=== PATIENT | female | born 1980 | race African-American/Black ===

== ENCOUNTER 2016-04-23 08:49 | Emergency (ER) | payer SELFPAY ==
[2016-04-23 09:05] VITALS: TEMP 98.8; BMI 35.9
[2016-04-23] MEDS ORDERED: ALBUTEROL 6.7 GM MDI INH ONE (09:21)
--- NOTE | 2016-04-23 09:23 | EDPRACDOC ---
- General Information Chief Complaint: Flu-Like Symptoms Stated Complaint: FLU LIKE SYMPTOMS Time Seen by Provider: 04/23/16 09:15 Information Source: Patient Mode Of Arrival: Car Home Medications: Home Medications Lisinopril/Hydrochlorothiazide [Lisinopril-Hctz 20-12.5 mg Tab] 1 tab PO DAILY # 30 tab 03/06/15 Metformin HCl 1,000 mg PO DAILY 04/23/16 Prednisone [Deltasone, Orasone] 20 mg PO DAILY #20 tab 04/23/16 Promethazine Dextromethorphan [Phenergan DM] 5 ml PO Q4H PRN #120 ml 04/23/16 Allergies/Adverse Reactions: Allergies Allergy/AdvReac Type Severity Reaction Status Date / Time No Known Allergies Allergy Verified 04/23/16 09:02 - History of Present Illness Onset: 2-3 days HPI: Pt c/o cough, congestion, sore throat, post tussive vomiting, sob x 3 days. Denies earache, cp, abd pain, changes in bowel or bladder, rash, leg swelling. Pt request her "anemia" level being checked because she feels its low. 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 Denies: Cancer Surgical History: Denies: Hysterectomy - Social Medical History Smoking Status: Heavy tobacco smoker (5 or more cigarettes/day or daily pipe/ cigar) ETOH: None Substance Abuse: None EDM Review of Systems - Review of Systems Constitutional: No Symptoms Reported. negative: Fever, Chills, Weakness, Fatigue, Loss of Appetite Ears: No Symptoms Reported. negative: Pain, Hearing Loss, Drainage, Ear Pulling Throat: Pain Nose: Congestion Mouth: No Symptoms Reported. negative: Pain, Drooling Respiratory: Cough Cardiovascular: No Symptoms Reported. negative: Chest Pain, Palpitations, Syncope, Edema, Orthopnea, PND, Skin Mottling, Cyanosis Gastrointestinal: Vomiting Genitourinary: No Symptoms Reported. negative: Dysuria, Hematuria, Frequency, Discharge, Bleeding, Testicular Pain, Neurological: No Symptoms Reported. negative: Headache, Dizziness, Seizure, Numbness, Weakness, Speech Difficulty, Gait Difficulty Musculoskeletal: Ribs. negative: No Symptoms Reported, Arm, Ankle, Back, Chestwall, Elbow, Forearm, Femur, Foot, Hand, Hip, Knee, Leg, Neck, Pelvis, Shoulder, Wrist Integumentary: No Symptoms Reported. negative: Itching, Rash, Bruising, Wound Allergic/Immunologic: No Symptoms Reported. negative: Hives, Itching Hematologic: No Symptoms Reported. negative: Lymphadenopathy, Easy Bruising, Easy Bleeding Psychiatric: No Symptoms Reported. negative: Anxiety, Depression, Hallucinations, Insomnia, Suicidal - Physical Exam Constitutional: No apparent distress, Alert Oriented to: Time, Person, Place Last recorded Vital Signs: Last Vital Signs Temp 98.8 F 04/23/16 08:59 Pulse 98 04/23/16 08:59 Resp 18 04/23/16 08:59 BP 173/86 04/23/16 08:59 Pulse Ox 96 04/23/16 08:59 Oxygen Pulse Oxygen Saturation 96 O2 Device Room Air Oxygen Flow Rate Fraction of Inspired Oxygen ( FIO2) - HEENT Head: Normal ( normocephalic) Eye Exam: Normal (PERRL, EOMI, Sclera white) Oropharynx: Normal (Pharynx:Moist without exudate,Gums-no swelling) Tympanic Membrane: Normal ENT EAC: Normal Nose: Congestion Neck: Normal (FROM, trachea at midline) - Respiratory/Cardiovascular Respiratory: Normal - CTA (BBS clear to auscultation without adventitious sounds ) Cardiovascular: Normal (RRR without murmur, gallop or rub) - GI Auscultation: Normal (NABS) Palpation: Normal (Soft,No rebound or guarding, non distended) Tenderness: Non tender - Musculoskeletal Back: Normal (Non-Tender) Extremities: Normal (Normal tone, Pulses 2+ No cyanosis or edema, FROM) - Integumentary Skin: Normal, Warm, Dry Lymphatics: Normal (no adenopathy) - Neurologic Memory Impaired: Normal Motor Function: Normal (Normal tone, Pulses 2+ No cyanosis or edema, FROM) Mood Description: Normal Perception: Normal - Differential Diagnosis Bronchitis, Pneumonia, URI, Viral - Results 04/23/16 09:30 - Diagnostic Imaging Chest Image interpreted by: Radiologist IMPRESSION: No active cardiopulmonary disease. Decision Time to Discharge: 10:15 - Departure Disposition: Home Condition: Good Final Diagnosis: Acute bronchitis, Acute upper respiratory infection Instructions: Acute Bronchitis (ED), Upper Respiratory Infection (ED) Education/Counseling Given To: Patient Education/Counseling Given Regarding: Diagnosis, Treatment, Follow Up Referrals: None,No Provider [Primary Care Provider] - One Week Jared Streeter MD [Staff Physician] - One Week Prescriptions: Prednisone [Deltasone, Orasone] 20 mg PO DAILY #20 tab Promethazine Dextromethorphan [Phenergan DM] 5 ml PO Q4H PRN #120 ml PRN Reason: Cough Additional Instructions: Albuterol MDI 1-2 puffs every 4-6 hours as needed for shortness of breath.
[2016-04-23 09:41] LABS: AUTOMATED BASOPHIL 0.7 % (0-2); AUTOMATED EOSINOPHIL 4.1 % (0-5); AUTOMATED LYMPH 22.5 % (17-44); AUTOMATED MONOCYTE 10.7 % (3-10); MPV 7.5 fL (7.4-10.4)
--- NOTE | 2016-04-23 10:12 | DIRPT ---
CLINICAL DATA: Cough and congestion 3 days. EXAM: CHEST 2 VIEW COMPARISON: 01/27/2016 FINDINGS: Lungs are adequately inflated without consolidation or effusion. Cardiomediastinal silhouette, bones and soft tissues are within normal. IMPRESSION: No active cardiopulmonary disease. Electronically Signed By: Kenji Mary M.D. On: 04/23/2016 10:10
[2016-04-23 10:53] VITALS: BP 172/86; PULSE 77
== END 2016-04-23 10:50 | disposition home or self-care (01) ==
LOC: ED 08:49
DX: J20.9 Acute bronchitis, unspecified (principal); J06.9 Acute upper respiratory infection, unspecified
CPT/HCPCS: 36415; 71020; 85025; 94640; 99283; J3490

== ENCOUNTER 2016-05-05 14:37 | Emergency (ER) | payer SELFPAY ==
[2016-05-05 14:47] VITALS: BMI 35.4
[2016-05-05 15:17] LABS: BLOOD UREA NITROGEN 8 MG/DL (7-17); CALCIUM 9.4 MG/DL (8.4-10.2); CALCULATED OSMOLALITY 270 MOs/Kg (270-290); CHLORIDE 106 mEq/L (98-107); GLUCOSE 110 MG/DL (70-99); SODIUM LEVEL 141 mEq/L (137-146); TOTAL PROTEIN 7.3 G/DL (6.3-8.2)
[2016-05-05 15:37] LABS: SEG NEUTROPHIL 78 % (45-76); TOTAL CELL COUNT 100
[2016-05-05] MEDS ORDERED: HYDROmorphone 1 MG INJECTION IV ONE ×2 (17:04→19:20)
[2016-05-05] MEDS ORDERED: NS 500 ML IV ONE (17:04)
[2016-05-05 17:30] VITALS: TEMP 100.5
[2016-05-05] MEDS ORDERED: ACETAMINOPHEN 325 MG/TAB TABLET PO ONE (17:37)
[2016-05-05] MEDS ORDERED: Pharmacy Review for Metformin - IV Contrast Given SCH (18:00)
--- NOTE | 2016-05-05 18:39 | DIRPT ---
CLINICAL DATA: Vaginal bleeding since 04/20/2016. Pelvic pain for 1 week. Initial encounter. EXAM: TRANSABDOMINAL AND TRANSVAGINAL ULTRASOUND OF PELVIS TECHNIQUE: Both transabdominal and transvaginal ultrasound examinations of the pelvis were performed. Transabdominal technique was performed for global imaging of the pelvis including uterus, ovaries, adnexal regions, and pelvic cul-de-sac. It was necessary to proceed with endovaginal exam following the transabdominal exam to visualize the uterus. COMPARISON: None FINDINGS: Uterus Measurements: 13.4 by 12.0 by 12.0 cm. Multiple fibroids are identified. The largest measures 4.8 cm in diameter. Endometrium Not visualized. Right ovary Not visualized. Left ovary Not visualized. Other findings No abnormal free fluid. IMPRESSION: Bulky fibroid uterus. The endometrium and ovaries are not visualized. Electronically Signed By: Vasquez Sadler M.D. On: 05/05/2016 18:37
--- NOTE | 2016-05-05 18:50 | EDPRACDOC ---
<Hakeem Boyd - Last Filed: 05/05/16 19:50> - General Information Information Source: Patient - History of Present Illness Onset: 04/20/16 HPI: PT PRESENTS TODAY WITH 3 WEEKS OF VAGINAL BLEEDING AND LOWER ABD PAIN X 3 WEEKS. PT STATES THAT SHE IS GOING THROUGH OVER 20 HEAVY PADS DAILY. PT STATES THAT SHE ALWAYS HAD HEAVY MENSTRUAL CYCLES, BUT NOT LIKE THIS. SEVERE LOWER ABD PAIN. PT UNAWARE OF ANY FEVER. Description: Reports: Spontaneous Location: Reports: Internal Vagina Relevant History: Reports: Other (PT REPORTS HISTORY OF UTERINE FIBROIDS.) Pain Severity: Severe Vaginal Bleeding Description: Reports: Dark, Clotted # Pads Used in the Last 12/24 Hours: 20 Associated Signs & Symptoms: Reports: Abdominal Pain, Nausea, Vaginal Bleeding <Alisa Castaneda - Last Filed: 05/05/16 19:52> - General Information Chief Complaint: Vaginal Bleeding Stated Complaint: VAGINAL BLEEDING WITH ABD PAIN Time Seen by Provider: 05/05/16 16:53 Home Medications: Home Medications Lisinopril/Hydrochlorothiazide [Lisinopril-Hctz 20-12.5 mg Tab] 1 tab PO DAILY # 30 tab 03/06/15 Metformin HCl 1,000 mg PO DAILY 04/23/16 Ferrous Sulfate [Feosol] 325 mg PO TID 05/05/16 Metronidazole [Flagyl] 500 mg PO TID #20 tab 05/05/16 Ondansetron HCl [Zofran] 4 mg PO Q6H PRN #20 tab 05/05/16 Oxycodone Immediate Release [Oxycodone Immediate Release (OxyIR)] 5 mg PO Q6H PRN #30 tab 05/05/16 Tranexamic Acid [Lysteda] 650 mg PO TID #5 days 05/05/16 Allergies/Adverse Reactions: Allergies Allergy/AdvReac Type Severity Reaction Status Date / Time No Known Allergies Allergy Verified 04/23/16 09:02 ED Past Medical History - History Reviewed Yes Nurses notes reviewed and agree except as marked - Patient Medical History Cardiac History: Reports: Hypertension Psychological History: Denies: Depression Systemic History: Reports: Diabetes. Denies: Cancer Surgical History: Denies: Hysterectomy - Social Medical History Smoking Status: Heavy tobacco smoker (5 or more cigarettes/day or daily pipe/ cigar) <Alisa Castaneda - Last Filed: 05/05/16 19:52> EDM Review of Systems - Review of Systems ROS Negative Except as Marked: Yes All systems reviewed and were negative except as marked Constitutional: No Symptoms Reported Respiratory: No Symptoms Reported Cardiovascular: No Symptoms Reported Gastrointestinal: Nausea, Pain Genitourinary: Bleeding Neurological: No Symptoms Reported Musculoskeletal: No Symptoms Reported Integumentary: No Symptoms Reported <Alisa Castaneda - Last Filed: 05/05/16 19:52> - Physical Exam Last recorded Vital Signs: Last Vital Signs Temp 100.5 F 05/05/16 17:29 Pulse 100 05/05/16 19:33 Resp 18 05/05/16 19:33 BP 171/85 05/05/16 19:33 Pulse Ox 95 05/05/16 19:33 Oxygen Pulse Oxygen Saturation 95 O2 Device Room Air Oxygen Flow Rate Fraction of Inspired Oxygen ( FIO2) <Hakeem Boyd - Last Filed: 05/05/16 19:50> - Physical Exam Constitutional: Alert (Awake), Distress Oriented to: Time, Person, Place Last recorded Vital Signs: Last Vital Signs Temp 100.5 F 05/05/16 17:29 Pulse 103 05/05/16 17:40 Resp 18 05/05/16 17:40 BP 167/82 05/05/16 17:40 Pulse Ox 94 05/05/16 17:40 Oxygen Pulse Oxygen Saturation 94 O2 Device Room Air Oxygen Flow Rate Fraction of Inspired Oxygen ( FIO2) - HEENT Head: Normal Eye Exam: Normal Neck: Normal, Denies Pain, Midline - Respiratory/Cardiovascular Respiratory: Normal - CTA Cardiovascular: Normal - GI Auscultation: Decreased (HASN'T EATEN FOR 12 HOURS) Palpation: Mass (FIRM ABDOMEN ALONG THE UTERUS; MASS?) Tenderness: Moderate, Suprapubic - External: Blood Vagina: Blood Cervix: Blood Uterus: Enlarged - Musculoskeletal Back: Normal Extremities: Normal - Integumentary Skin: Warm Lymphatics: Normal - Neurologic Cerebellar: Normal Mood Description: Normal Thought: Coherent <Alisa Castaneda - Last Filed: 05/05/16 19:52> ED Vaginal Exam External: Blood Vaginal Exam: Blood Vaginal Lesions: None Cervix: Blood Uterus: Enlarged, Tender Adnexa: Other (CANNOT PALPATE) <Alisa Castaneda - Last Filed: 05/05/16 19:52> - Results 05/05/16 14:48 05/05/16 14:48 WBC 13.3 xk/uL (3.8-10.8) H 05/05/16 14:48 RBC 4.28 xM/uL (4.20-5.40) 05/05/16 14:48 Hgb 10.5 g/dL (12.0-16.0) L 05/05/16 14:48 Hct 33.3 % (36-47) L 05/05/16 14:48 MCV 78 fL (81-99) L 05/05/16 14:48 MCH 24.5 pg (27-32) L 05/05/16 14:48 MCHC 31.4 g/dl (33-36) L 05/05/16 14:48 RDW 25.7 % (11.5-14.5) H 05/05/16 14:48 Plt Count 418 xk/uL (130-400) H 05/05/16 14:48 MPV 8.0 fL (7.4-10.4) 05/05/16 14:48 Neut % (Auto) Cancelled 05/05/16 14:48 Lymph % (Auto) Cancelled 05/05/16 14:48 [place] % (Auto) Cancelled 05/05/16 14:48 Eos % (Auto) Cancelled 05/05/16 14:48 Baso % (Auto) Cancelled 05/05/16 14:48 Absolute Neuts (auto) Cancelled 05/05/16 14:48 Absolute Lymphs (auto) Cancelled 05/05/16 14:48 Seg Neuts % (Manual) 78 % (45-76) H 05/05/16 14:48 Band Neutrophils % 2 % (0-5) 05/05/16 14:48 Lymphocytes % (Manual) 15 % (17-44) L 05/05/16 14:48 Monocytes % (Manual) 4 % (0-10) 05/05/16 14:48 Basophils % (Manual) 1 % (0-2) 05/05/16 14:48 Absolute Neutrophils 10.64 xk/uL (1.7-8.2) H 05/05/16 14:48 Absolute Lymphocytes 2.00 xk/uL (0.65-4.75) 05/05/16 14:48 Vacuolated Neuts 1+ 05/05/16 14:48 Platelet Estimate Inc (NORMAL) Occ giant platelet (NORMAL) 05/05/16 14:48 Platelet Estimate Inc (NORMAL) Occ giant platelet (NORMAL) 05/05/16 14:48 RBC Morphology 1+ aniso 1+ poik 1+ hypo 1+ polychrom 1+ micro 1+ ellipto 14:48 RBC Morphology 1+ aniso 1+ poik 1+ hypo 1+ polychrom 1+ micro 1+ ellipto 14:48 RBC Morphology 1+ aniso 1+ poik 1+ hypo 1+ polychrom 1+ micro 1+ ellipto 14:48 RBC Morphology 1+ aniso 1+ poik 1+ hypo 1+ polychrom 1+ micro 1+ ellipto 14:48 RBC Morphology 1+ aniso 1+ poik 1+ hypo 1+ polychrom 1+ micro 1+ ellipto 14:48 RBC Morphology 1+ aniso 1+ poik 1+ hypo 1+ polychrom 1+ micro 1+ ellipto 14:48 Sodium 141 mEq/L (137-146) 05/05/16 14:48 Potassium 3.7 mEq/L (3.5-5.1) 05/05/16 14:48 Chloride 106 mEq/L (98-107) 05/05/16 14:48 Carbon Dioxide 25 mMOL/L (22-33) 05/05/16 14:48 Anion Gap 14 mEq/L (8-16) 05/05/16 14:48 BUN 8 MG/DL (7-17) 05/05/16 14:48 Creatinine 0.50 MG/DL (0.52-1.04) L 05/05/16 14:48 Estimated GFR (MDRD) > 60 mL/min (>=60) 05/05/16 14:48 Glucose 110 MG/DL (70-99) H 05/05/16 14:48 Calculated Osmolality 270 MOs/Kg (270-290) 05/05/16 14:48 Lactic Acid 0.7 mEq/L (0.7-2.1) 05/05/16 17:19 Calcium 9.4 MG/DL (8.4-10.2) 05/05/16 14:48 Total Bilirubin 0.3 MG/DL (0.2-1.3) 05/05/16 14:48 AST 18 IU/L (14-36) 05/05/16 14:48 ALT 40 IU/L (9-52) 05/05/16 14:48 Alkaline Phosphatase 75 IU/L (38-126) 05/05/16 14:48 Total Protein 7.3 G/DL (6.3-8.2) 05/05/16 14:48 Albumin 4.4 G/DL (3.5-5.0) 05/05/16 14:48 Urine Test Neg (NEGATIVE) 05/05/16 14:50 Microbiology 05/05/16 19:17 Trichomonas [place] - Final Vaginal 05/05/16 19:17 CRIS Preparation - Final Vaginal Lab Results 05/05/16 05/05/16 05/05/16 17:19 14:50 14:48 WBC 13.3 H RBC 4.28 Hgb 10.5 L Hct 33.3 L MCV 78 L MCH 24.5 L MCHC 31.4 L RDW 25.7 H Plt Count 418 H MPV 8.0 Neut % (Auto) Cancelled Lymph % (Auto) Cancelled [place] % (Auto) Cancelled Eos % (Auto) Cancelled Baso % (Auto) Cancelled Absolute Neuts (auto) Cancelled Absolute Lymphs (auto) Cancelled Seg Neuts % (Manual) 78 H Band Neutrophils % 2 Lymphocytes % (Manual) 15 L Monocytes % (Manual) 4 Basophils % (Manual) 1 Absolute Neutrophils 10.64 H Absolute Lymphocytes 2.00 Vacuolated Neuts 1+ Platelet Estimate Occ giant platelet RBC Morphology 1+ ellipto Sodium Potassium Chloride Carbon Dioxide Anion Gap BUN Creatinine Estimated GFR (MDRD) Glucose Calculated Osmolality Lactic Acid 0.7 Calcium Total Bilirubin AST ALT Alkaline Phosphatase Total Protein Albumin Urine Test Neg 05/05/16 14:48 WBC RBC Hgb Hct MCV MCH MCHC RDW Plt Count MPV Neut % (Auto) Lymph % (Auto) [place] % (Auto) Eos % (Auto) Baso % (Auto) Absolute Neuts (auto) Absolute Lymphs (auto) Seg Neuts % (Manual) Band Neutrophils % Lymphocytes % (Manual) Monocytes % (Manual) Basophils % (Manual) Absolute Neutrophils Absolute Lymphocytes Vacuolated Neuts Platelet Estimate RBC Morphology Sodium 141 Potassium 3.7 Chloride 106 Carbon Dioxide 25 Anion Gap 14 BUN 8 Creatinine 0.50 L Estimated GFR (MDRD) > 60 Glucose 110 H Calculated Osmolality 270 Lactic Acid Calcium 9.4 Total Bilirubin 0.3 AST 18 ALT 40 Alkaline Phosphatase 75 Total Protein 7.3 Albumin 4.4 Urine Test <Hakeem Boyd - Last Filed: 05/05/16 19:50> - Results 05/05/16 14:48 05/05/16 14:48 WBC 13.3 xk/uL (3.8-10.8) H 05/05/16 14:48 RBC 4.28 xM/uL (4.20-5.40) 05/05/16 14:48 Hgb 10.5 g/dL (12.0-16.0) L 05/05/16 14:48 Hct 33.3 % (36-47) L 05/05/16 14:48 MCV 78 fL (81-99) L 05/05/16 14:48 MCH 24.5 pg (27-32) L 05/05/16 14:48 MCHC 31.4 g/dl (33-36) L 05/05/16 14:48 RDW 25.7 % (11.5-14.5) H 05/05/16 14:48 Plt Count 418 xk/uL (130-400) H 05/05/16 14:48 MPV 8.0 fL (7.4-10.4) 05/05/16 14:48 Neut % (Auto) Cancelled 05/05/16 14:48 Lymph % (Auto) Cancelled 05/05/16 14:48 [place] % (Auto) Cancelled 05/05/16 14:48 Eos % (Auto) Cancelled 05/05/16 14:48 Baso % (Auto) Cancelled 05/05/16 14:48 Absolute Neuts (auto) Cancelled 05/05/16 14:48 Absolute Lymphs (auto) Cancelled 05/05/16 14:48 Seg Neuts % (Manual) 78 % (45-76) H 05/05/16 14:48 Band Neutrophils % 2 % (0-5) 05/05/16 14:48 Lymphocytes % (Manual) 15 % (17-44) L 05/05/16 14:48 Monocytes % (Manual) 4 % (0-10) 05/05/16 14:48 Basophils % (Manual) 1 % (0-2) 05/05/16 14:48 Absolute Neutrophils 10.64 xk/uL (1.7-8.2) H 05/05/16 14:48 Absolute Lymphocytes 2.00 xk/uL (0.65-4.75) 05/05/16 14:48 Vacuolated Neuts 1+ 05/05/16 14:48 Platelet Estimate Inc (NORMAL) Occ giant platelet (NORMAL) 05/05/16 14:48 Platelet Estimate Inc (NORMAL) Occ giant platelet (NORMAL) 05/05/16 14:48 RBC Morphology 1+ aniso 1+ poik 1+ hypo 1+ polychrom 1+ micro 1+ ellipto 14:48 RBC Morphology 1+ aniso 1+ poik 1+ hypo 1+ polychrom 1+ micro 1+ ellipto 14:48 RBC Morphology 1+ aniso 1+ poik 1+ hypo 1+ polychrom 1+ micro 1+ ellipto 14:48 RBC Morphology 1+ aniso 1+ poik 1+ hypo 1+ polychrom 1+ micro 1+ ellipto 14:48 RBC Morphology 1+ aniso 1+ poik 1+ hypo 1+ polychrom 1+ micro 1+ ellipto 14:48 RBC Morphology 1+ aniso 1+ poik 1+ hypo 1+ polychrom 1+ micro 1+ ellipto 14:48 Sodium 141 mEq/L (137-146) 05/05/16 14:48 Potassium 3.7 mEq/L (3.5-5.1) 05/05/16 14:48 Chloride 106 mEq/L (98-107) 05/05/16 14:48 Carbon Dioxide 25 mMOL/L (22-33) 05/05/16 14:48 Anion Gap 14 mEq/L (8-16) 05/05/16 14:48 BUN 8 MG/DL (7-17) 05/05/16 14:48 Creatinine 0.50 MG/DL (0.52-1.04) L 05/05/16 14:48 Estimated GFR (MDRD) > 60 mL/min (>=60) 05/05/16 14:48 Glucose 110 MG/DL (70-99) H 05/05/16 14:48 Calculated Osmolality 270 MOs/Kg (270-290) 05/05/16 14:48 Lactic Acid 0.7 mEq/L (0.7-2.1) 05/05/16 17:19 Calcium 9.4 MG/DL (8.4-10.2) 05/05/16 14:48 Total Bilirubin 0.3 MG/DL (0.2-1.3) 05/05/16 14:48 AST 18 IU/L (14-36) 05/05/16 14:48 ALT 40 IU/L (9-52) 05/05/16 14:48 Alkaline Phosphatase 75 IU/L (38-126) 05/05/16 14:48 Total Protein 7.3 G/DL (6.3-8.2) 05/05/16 14:48 Albumin 4.4 G/DL (3.5-5.0) 05/05/16 14:48 Urine Test Neg (NEGATIVE) 05/05/16 14:50 Lab Results 05/05/16 05/05/16 05/05/16 17:19 14:50 14:48 WBC 13.3 H RBC 4.28 Hgb 10.5 L Hct 33.3 L MCV 78 L MCH 24.5 L MCHC 31.4 L RDW 25.7 H Plt Count 418 H MPV 8.0 Neut % (Auto) Cancelled Lymph % (Auto) Cancelled [place] % (Auto) Cancelled Eos % (Auto) Cancelled Baso % (Auto) Cancelled Absolute Neuts (auto) Cancelled Absolute Lymphs (auto) Cancelled Seg Neuts % (Manual) 78 H Band Neutrophils % 2 Lymphocytes % (Manual) 15 L Monocytes % (Manual) 4 Basophils % (Manual) 1 Absolute Neutrophils 10.64 H Absolute Lymphocytes 2.00 Vacuolated Neuts 1+ Platelet Estimate Occ giant platelet RBC Morphology 1+ ellipto Sodium Potassium Chloride Carbon Dioxide Anion Gap BUN Creatinine Estimated GFR (MDRD) Glucose Calculated Osmolality Lactic Acid 0.7 Calcium Total Bilirubin AST ALT Alkaline Phosphatase Total Protein Albumin Urine Test Neg 05/05/16 14:48 WBC RBC Hgb Hct MCV MCH MCHC RDW Plt Count MPV Neut % (Auto) Lymph % (Auto) [place] % (Auto) Eos % (Auto) Baso % (Auto) Absolute Neuts (auto) Absolute Lymphs (auto) Seg Neuts % (Manual) Band Neutrophils % Lymphocytes % (Manual) Monocytes % (Manual) Basophils % (Manual) Absolute Neutrophils Absolute Lymphocytes Vacuolated Neuts Platelet Estimate RBC Morphology Sodium 141 Potassium 3.7 Chloride 106 Carbon Dioxide 25 Anion Gap 14 BUN 8 Creatinine 0.50 L Estimated GFR (MDRD) > 60 Glucose 110 H Calculated Osmolality 270 Lactic Acid Calcium 9.4 Total Bilirubin 0.3 AST 18 ALT 40 Alkaline Phosphatase 75 Total Protein 7.3 Albumin 4.4 Urine Test - Additional Information CONSULTED WITH DR. ATKINS; ADVISED TO PRESCRIBE LYSTEDA TO HELP WITH THE BLEEDING/PAIN. NARCOTICS FOR ADDITIONAL CONTROL; TREAT FOR PID AND NO SEXUAL ACTIVITY UNTIL FOLLOW UP. WILBERT WILL SEE NEXT WEEK IN OFFICE. <Alisa Castaneda - Last Filed: 05/05/16 19:52> - Departure Yes I personally saw and evaluated the patient. <Hakeem Boyd - Last Filed: 05/05/16 19:50> Decision Time to Discharge: 19:52 - Departure Disposition: Home Education/Counseling Given To: Patient Education/Counseling Given Regarding: Diagnosis, Treatment, Follow Up <Alisa Castaneda - Last Filed: 05/05/16 19:52> - Departure Condition: Stable Final Diagnosis: Dysfunctional uterine bleeding, Enlarged uterus, PID (pelvic inflammatory disease) Uterine fibroid Qualifiers: Uterine leiomyoma location: unspecified location Qualified Code(s): D25.9 - Leiomyoma of uterus, unspecified Instructions: Dysfunctional Uterine Bleeding (ED) Referrals: None,No Provider [Primary Care Provider] - One Week Cristina Rodas DO [Staff Physician] - One Week Prescriptions: New Metronidazole [Flagyl] 500 mg PO TID #20 tab Ondansetron HCl [Zofran] 4 mg PO Q6H PRN #20 tab PRN Reason: Nausea/Vomiting Oxycodone Immediate Release [Oxycodone Immediate Release (OxyIR)] 5 mg PO Q6H PRN #30 tab PRN Reason: Pain Tranexamic Acid [Lysteda] 650 mg PO TID #5 days No Action Lisinopril/Hydrochlorothiazide [Lisinopril-Hctz 20-12.5 mg Tab] 1 tab PO DAILY #30 tab Metformin HCl 1,000 mg PO DAILY Ferrous Sulfate [Feosol] 325 mg PO TID Additional Instructions: PELVIC REST UNTIL FOLLOW UP WITH COOLING PAN TENDER (AT LEAST [address] ATKINS WAS CONSULTED AND WILL SEE YOU IN THE OFFICE.
--- NOTE | 2016-05-05 19:17 | DIRPT ---
CLINICAL DATA: Vaginal bleeding. Evaluate for abdominal mass. EXAM: CT ABDOMEN AND PELVIS WITH CONTRAST TECHNIQUE: Multidetector CT imaging of the abdomen and pelvis was performed using the standard protocol following bolus administration of intravenous contrast. CONTRAST: 100 cc Isovue COMPARISON: Ultrasound 05/05/[address] thorax 01/27/1962 FINDINGS: Lower chest: Ovoid smoothly lesion at the RIGHT lung base measures 18 mm (image 21, series 3) with no direct comparison available. Effusion present on comparison CT. Hepatobiliary: Enhancing lesion the posterior aspect of the RIGHT hepatic lobe measuring 3.5 cm likely represents a hemangioma. Normal gallbladder Pancreas: Pancreas is normal. No ductal dilatation. No pancreatic inflammation. Spleen: Normal spleen Adrenals/urinary tract: Adrenal glands and kidneys are normal. The ureters and bladder normal. Stomach/Bowel: Stomach, small bowel, appendix, and cecum are normal. The colon and rectosigmoid colon are normal. Vascular/Lymphatic: Abdominal aorta is normal caliber. There is no retroperitoneal or periportal lymphadenopathy. No pelvic lymphadenopathy. Reproductive: Uterus is enlarged and lobular with multiple round enhancing masses. Uterus measures 22 cm in craniocaudad dimension extends the superior to the umbilicus. In axial dimension the uterus measures 17 by 13 cm. There are multiple round intramural and a serosal leiomyomas. There is a fat containing lesion in the RIGHT adnexa measuring 4.5 by 3.4 cm with a calcified rim. LEFT ovary is not well identified. LEFT ovary may reside on image 56, series 3 No free fluid the pelvis. The vagina appears normal. Other: No free fluid. Musculoskeletal: No aggressive osseous lesion. IMPRESSION: 1. Extremely large fibroid uterus extending above the umbilicus. 2. Mature dermoid lesion of the RIGHT adnexa measuring up to 4.5 cm. 3. Recommend non emergent [employer]CTION [employer]GER surgical consultation for the leiomyomatous uterus and RIGHT adnexal dermoid lesion. 4. Round smooth lesion at the RIGHT lung base. Recommend follow-up CT with contrast in 1 to 3 months to evaluate stability / growth. Electronically Signed By: Bib Montoya M.D. On: 05/05/2016 19:14
[2016-05-05] MEDS ORDERED: AZITHROMYCIN 250 MG TAB PO ONE (19:34)
[2016-05-05] MEDS ORDERED: CEFTRIAXONE 250 MG in D5W 100 ML IV ONE (19:34)
[2016-05-05 19:53] LABS: LEUKOCYTES/URINE 1+ (NEGATIVE); NITRITE/URINE NEG (NEGATIVE); RBC/URINE TNTC (0-5); URINE OCCULT BLOOD 3+ (NEG/TRACE)
[2016-05-05 20:27] VITALS: BP 141/68; PULSE 94
[2016-05-08 06:41] LABS: CHLAMY BY NUCLEIC ACID AMP Negative (Negative)
[2016-05-08 07:47] LABS: GC BY NUCLEIC ACID AMP Negative (Negative)
== END 2016-05-05 20:20 | disposition home or self-care (01) ==
LOC: ED 14:37 → EDMC 20:20
DX: N93.8 Other specified abnormal uterine and vaginal bleeding (principal); N73.9 Female pelvic inflammatory disease, unspecified; N85.2 Hypertrophy of uterus
CPT/HCPCS: 36415; 74177; 76830; 76856; 80053; 81001; 81025; 83605; 85007; 85027; 87040; 87086; 87210; 87220; 87491; 87591; 93975; 96361; 96365; 96375; 96376; 99284; A9698; J0696; J1170; J3490; J7060